=== PATIENT | male | born 1945 | race African-American/Black ===

== ENCOUNTER → 2020-09-10 | Day surgery (SDC) | payer MEDICARE, OTHER ==
[2020-09-05 12:20] LABS: BASOPHILS # (AUTO) 0.1 (0.0-0.1); EOSINOPHILS # (AUTO) 0.2 (0.0-0.4); EOSINOPHILS % 3.2 % (0.0-6.0); HEMATOCRIT 37.4 % (38.2-49.6); HEMOGLOBIN 11.8 g/dL (14.0-18.0); LYMPHOCYTES % 32.5 % (18.0-39.1); MEAN CORPUSCULAR HEMOGLOBIN 25.6 pg (28-32); MEAN CORPUSCULAR HGB CONC 31.6 g/dL (31-35); MEAN CORPUSCULAR VOLUME 81.1 fL (81-99); MONOCYTES # (AUTO) 0.3 (0.2-0.8); MONOCYTES % 4.9 % (4.4-11.3); NEUTROPHILS # (AUTO) 3.6 (2.1-6.9); NEUTROPHILS % 58.1 % (38.7-80.0); PLATELET COUNT 159 x10e3/uL (140-360); RED BLOOD COUNT 4.61 x10e6/uL (4.3-5.7); RED CELL DISTRIBUTION WIDTH 13.8 % (11.7-14.4)
[~2020-09-10] MED LIST: ANAFRANIL50 MG PO; CELEBREX100 MG PO; CRESTOR10 MG PO; FERROUS SULFAT325 MG PO; FLOMAX0.4 MG PO; GABAPENTIN400 MG PO; GLIMEPIRIDE2 MG PO; JANUVIA50 MG PO; LIDOCAINE HCL 2% LOCAL INJ 5 ML SDV VIAL INJ ONE; LISINOPRIL-HCT1 EAC2 PO; METFORMIN HCL500 M3; NORCO 7.5-3251 EACH PO; OMEPRAZOLE40 MG PO; PRAVASTATIN SOD40 MG PO; PROPOFOL IV EMULSION 10 MG/ML 20 ML VIAL ONE; SIMVASTATIN; TRAMADOL HCL100 MG PO; VITAMIN D250 MC1 PO; Z.0.FINASTERIDE5 MG PO; Z.0.GLYBURIDE2.5 MG PO; Z.0.LISINOPRIL20 MG PO; [UNRECOGNIZED DRUG - OTHER] PO
[2020-09-10 10:25] VITALS: BP 188/96
== END | disposition home or self-care (01) ==
LOC: OR 07:01
PROVIDERS: ATTEND Internal Medicine Gastroenterology
DX: K21.9 Gastro-esophageal reflux disease without esophagitis (principal); K29.70 Gastritis, unspecified, without bleeding; R19.5 Other fecal abnormalities; K57.30 Diverticulosis of large intestine without perforation or abscess without bleeding; K44.9 Diaphragmatic hernia without obstruction or gangrene; K59.00 Constipation, unspecified; K64.8 Other hemorrhoids; I25.10 Atherosclerotic heart disease of native coronary artery without angina pectoris; I10 Essential (primary) hypertension; R01.1 Cardiac murmur, unspecified; E11.9 Type 2 diabetes mellitus without complications; N40.0 Benign prostatic hyperplasia without lower urinary tract symptoms; I44.0 Atrioventricular block, first degree; Z01.810 Encounter for preprocedural cardiovascular examination; Z01.812 Encounter for preprocedural laboratory examination; Z20.822 Contact with and (suspected) exposure to COVID-19; Z79.84 Long term (current) use of oral hypoglycemic drugs; Z68.33 Body mass index [BMI] 33.0-33.9, adult; Z83.79 Family history of other diseases of the digestive system
CPT/HCPCS: 36415; 43239; 45380; 85025; 93005; J2001; J2704; U0002; 45378